=== PATIENT | male | born 1970 | race Hispanic/Latino ===

== ENCOUNTER 2020-05-30 13:07 | Emergency (ER) | payer SELFPAY ==
[~2020-05-30] VITALS: Ht 170.2 cm; Wt 202.0 kg
[~2020-05-30 13:07] MED LIST: CIPROFLOXACN500 MG PO
[2020-05-30] MEDS ORDERED: LOVASTATIN40 M1 PO (13:59)
[2020-05-30] MEDS ORDERED: HYDROCHLOROT12.5 MG PO (13:59)
[2020-05-30] MEDS ORDERED: KEFLEX500 M1 PO (14:51)
[2020-05-30 15:05] VITALS: BP 136/80
== END 2020-05-30 15:05 | disposition home or self-care (01) | DRG 914 ==
LOC: ED 13:07
PROC: 0HQFXZZ Repair Right Hand Skin, External Approach (ICD-10-PCS; principal; 2020-05-30)
DX: S61.220A Laceration with foreign body of right index finger without damage to nail, initial encounter (principal); I10 Essential (primary) hypertension; W27.0XXA Contact with workbench tool, initial encounter; Y93.H2 Activity, gardening and landscaping; Y92.009 Unspecified place in unspecified non-institutional (private) residence as the place of occurrence of the external cause

== ENCOUNTER 2020-06-12 07:54 | Emergency (ER) | payer SELFPAY ==
[~2020-06-12] VITALS: Ht 170.2 cm; Wt 91.4 kg
[~2020-06-12 07:54] MED LIST changes: +HYDROCHLOROT12.5 MG PO; +KEFLEX500 M1 PO; +LOVASTATIN40 M1 PO
[2020-06-12 09:00] VITALS: BP 138/82
== END 2020-06-12 09:10 | disposition home or self-care (01) | DRG 950 ==
LOC: ED 07:54
DX: S61.200D Unspecified open wound of right index finger without damage to nail, subsequent encounter (principal); X58.XXXD Exposure to other specified factors, subsequent encounter